=== PATIENT | female | born 1955 | race Caucasian/White ===

== ENCOUNTER 2018-01-10 04:26 | Inpatient (IN) | payer MEDICARE ==
[2018-01-10] VITALS (17 sets, daily range): BP systolic 95–193; BP diastolic 56–121
[~2018-01-10] VITALS: Ht 152.4 cm; Wt 56.7 kg
[2018-01-10 04:59] LABS: EOSINOPHILS % (AUTO) 0.1 % (0.0-8.0); LYMPHOCYTES % (AUTO) 9.5 % (21.0-51.0); MEAN CORPUSCULAR HEMOGLOBIN 30.5 pg (27.0-33.0); MEAN CORPUSCULAR HGB CONC 34.9 g/dL (32.0-36.0); MEAN CORPUSCULAR VOLUME 87.4 fL (79-99); MONOCYTES % (AUTO) 5.4 % (3.0-13.0); PLATELET COUNT (AUTO) 224 K/uL (130-400); RED BLOOD CELL COUNT(AUTO) 5.27 MIL/uL (4.00-5.50); WHITE BLOOD COUNT (AUTO) 13.5 K/uL (4.8-10.8)
[2018-01-10 05:08] LABS: INR 1.08 (0.85-1.15); PARTIAL THROMBOPLASTIN TIME 25.6 SEC (26.3-35.5); PROTHROMBIN TIME 11.3 SEC (9.6-11.6)
[2018-01-10 05:11] LABS: ALBUMIN 3.9 g/dL (3.5-5.0); BILIRUBIN,TOTAL 0.7 mg/dL (0.2-1.0); CREATININE 0.8 mg/dL (0.5-1.5); TOTAL PROTEIN, SERUM 7.1 g/dL (6.0-8.3)
[2018-01-10 05:13] LABS: APPEARANCE,URINE Clear (CLEAR); BILIRUBIN,URINE Small (NEGATIVE); COLOR,URINE Dark Yellow (YELLOW); GLUCOSE, URINE (UA) TRACE mg/dL (NEGATIVE); KETONES,URINE >=80 mg/dL (NEGATIVE); LEUKOCYTE ESTERASE ,URINE Trace (NEGATIVE); NITRATE,URINE Negative (NEGATIVE); OCCULT BLOOD,URINE Negative (NEGATIVE); PH,URINE 6.5 (5.0-8.0); PROTEIN,URINE Negative (NEGATIVE)
[2018-01-10 05:15] LABS: POTASSIUM 2.9 mmol/L (3.5-5.1)
[2018-01-10] MEDS ORDERED: ONDANSETRON HCL MDV 20ML 2 MG/ML VIAL ONE ×2 (05:15→23:59)
[2018-01-10] MEDS ORDERED: FAMOTIDINE/PF 20 MG/2 ML VIAL IV ONE (05:19)
[2018-01-10] MEDS ORDERED: SODIUM CHLORIDE 0.9% 1000ML 1,000 ML IV ONE ×2 (05:19→09:26)
[2018-01-10 05:38] LABS: BACTERIA,URINE None Seen /HPF (None Seen); MUCUS,URINE Rare LPF (None Seen); RBC,URINE None Seen /HPF (0-1); SQUAMOUS EPITHELIAL CELL,UR Few /LPF (0-2); WBC,URINE 0-1 /HPF (0-1); YEAST,URINE BUDDING None Seen /HPF (None Seen)
[2018-01-10] MEDS ORDERED: POTASSIUM BICARB/CIT AC 25 MEQ TABLET.EFF ONE (06:21)
[2018-01-10] MEDS ORDERED: PROMETHAZINE HCL 25 MG/ML 1ML AMPULE IM ONE ×2 (06:30→18:02)
[2018-01-10] MEDS ORDERED: LEVOFLOXACIN 500 MG/D5W 100 ML 100 ML ONE (07:59)
[2018-01-10] MEDS ORDERED: SODIUM CHLORIDE 0.9% 100 ML IV ONE (08:20)
[2018-01-10] MEDS ORDERED: POTASSIUM CHLORIDE 40 MEQ in SODIUM CHLORIDE 0.9% 250 ML IV SCH (09:15)
[2018-01-10 10:17] LABS: HEMATOCRIT 44.5 % (36-48)
[2018-01-10] MEDS ORDERED: NITROGLYCERIN 0.4 MG SL TAB SL PRN (10:45)
[2018-01-10] MEDS ORDERED: POTASSIUM CHLORIDE 10% ELIXIR 20 MEQ/15 ML UDCUP PO PRN (10:45)
[2018-01-10] MEDS ORDERED: LIDOCAINE HCL-MPF 1% 2ML VIAL IVP PRN (10:45)
[2018-01-10] MEDS ORDERED: POTASSIUM CHLORIDE 20MEQ/100ML 100 ML IV PRN (10:45)
[2018-01-10] MEDS ORDERED: ACETAMINOPHEN-CODEINE 300/30MG TAB PO PRN ×2 (10:45)
[2018-01-10] MEDS ORDERED: LACTULOSE 20 GM/30 ML UDCUP PO PRN (10:45)
[2018-01-10] MEDS ORDERED: ONDANSETRON HCL 4 MG/2 ML VIAL IV PRN (10:45)
[2018-01-10] MEDS ORDERED: GUAIFENESIN-DM 200/20 MG 10 ML PO PRN (10:45)
[2018-01-10] MEDS ORDERED: MAG HYDROX/AL HYDROX/SIMETH ES 30 ML SUSP UDCUP PO PRN (10:45)
[2018-01-10] MEDS ORDERED: ACETAMINOPHEN 325 MG TAB PO PRN ×2 (10:45)
[2018-01-10] MEDS ORDERED: METOCLOPRAMIDE 10 MG/2 ML VIAL IVP SCH (11:30)
[2018-01-10] MEDS: MORPHINE SULFATE 4 MG/1ML SYG IV PRN (11:55)
[2018-01-10] MEDS: POTASSIUM CHLORIDE 40 MEQ in SODIUM CHLORIDE 0.9% 1000ML 1,000 ML IV SCH ×2 (12:18→21:10)
[2018-01-10] MEDS ORDERED: PROPOFOL 10 MG/ML 20ML VIAL IV ONE (14:52)
[2018-01-10] MEDS ORDERED: LIDOCAINE HCL 1% 20 ML VIAL ONE (14:54)
[2018-01-10] MEDS ORDERED: GLYCOPYRROLATE 0.2 MG/ML 5 ML VIAL ONE (14:54)
[2018-01-10] MEDS ORDERED: MIDAZOLAM HCL 1 MG/ML 2ML VIAL ONE ×2 (17:51→18:08)
[2018-01-10] MEDS ORDERED: FENTANYL CITRATE PF 50 MCG/1 ML 2ML VIAL ONE ×2 (17:51→18:04)
[2018-01-10] MEDS: MAGNESIUM CITRATE 296 ML SOLUTION PO SCH ×2 (20:15→21:07)
[2018-01-10] MEDS ORDERED: PEG 3350/NA SULF,BICARB,CL/KCL 4000 ML SOLN PO SCH (20:15)
[2018-01-10] MEDS: LACTULOSE 20 GM/30 ML UDCUP PO SCH ×2 (20:15→21:07)
[2018-01-10] MEDS: HYDRALAZINE HCL 20 MG/ML VIAL IV PRN (21:07)
[2018-01-11] VITALS (7 sets, daily range): BP systolic 123–146; BP diastolic 71–88
[2018-01-11] MEDS: MORPHINE SULFATE 2 MG/ML 1ML SYG IV PRN ×3 (03:20→17:49)
[2018-01-11] MEDS ORDERED: FLUO40CA7 PO (03:37)
[2018-01-11] MEDS ORDERED: LORA2TAB2 PO (03:37)
[2018-01-11] MEDS: POTASSIUM CHLORIDE 40 MEQ in SODIUM CHLORIDE 0.9% 1000ML 1,000 ML IV SCH ×3 (04:24→21:38)
[2018-01-11 05:23] LABS: HEMATOCRIT 43.6 % (36-48); MEAN CORPUSCULAR HEMOGLOBIN 30.3 pg (27.0-33.0); MEAN CORPUSCULAR HGB CONC 34.4 g/dL (32.0-36.0); MEAN CORPUSCULAR VOLUME 88.1 fL (79-99); PLATELET COUNT (AUTO) 219 K/uL (130-400); RED BLOOD CELL COUNT(AUTO) 4.95 MIL/uL (4.00-5.50); WHITE BLOOD COUNT (AUTO) 14.1 K/uL (4.8-10.8)
[2018-01-11 05:35] LABS: CREATININE 0.7 mg/dL (0.5-1.5); MAGNESIUM 1.8 mg/dL (1.80-2.40); PHOSPHORUS 2.6 mg/dL (2.5-4.9); POTASSIUM 4.3 mmol/L (3.5-5.1)
[2018-01-11] MEDS ORDERED: ONDANSETRON HCL MDV 20ML 2 MG/ML VIAL ONE (07:41)
[2018-01-11] MEDS ORDERED: LORA1TAB3 PO (07:48)
[2018-01-11] MEDS: PANTOPRAZOLE SODIUM 40 MG TABLET.DR PO SCH (14:44)
[2018-01-11] MEDS: FLUOXETINE HCL 20 MG CAPSULE PO SCH (14:44)
[2018-01-11] MEDS: LEVOFLOXACIN 500 MG/D5W 100 ML 100 ML IV SCH (14:44)
[2018-01-11] MEDS: LORAZEPAM 2 MG/ML 1 ML VIAL IVP PRN (14:46)
[2018-01-11] MEDS: METOPROLOL TARTRATE 1 MG/ML 5ML VIAL IV PRN (15:05)
[2018-01-11] MEDS ORDERED: IOPAMIDOL-370 75 ML VIAL IV ONE (16:03)
[2018-01-11] MEDS: LORAZEPAM 1 MG TABLET PO SCH (21:37)
[2018-01-12] VITALS: BP 145/84
[2018-01-12 04:00] VITALS: BP 162/84
[2018-01-12] MEDS: HYDRALAZINE HCL 20 MG/ML VIAL IV PRN (05:24)
[2018-01-12 05:46] LABS: HEMATOCRIT 44.8 % (36-48); MEAN CORPUSCULAR HEMOGLOBIN 30.4 pg (27.0-33.0); MEAN CORPUSCULAR HGB CONC 34.4 g/dL (32.0-36.0); MEAN CORPUSCULAR VOLUME 88.4 fL (79-99); PLATELET COUNT (AUTO) 203 K/uL (130-400); RED BLOOD CELL COUNT(AUTO) 5.06 MIL/uL (4.00-5.50); RED CELL DISTRIBUTION WIDTH 14.3 % (11.0-15.5)
[2018-01-12 05:52] LABS: CREATININE 0.7 mg/dL (0.5-1.5)
[2018-01-12] MEDS: MORPHINE SULFATE 2 MG/ML 1ML SYG IV PRN ×2 (06:56→19:11)
[2018-01-12 07:54] VITALS: BP 117/69
[2018-01-12] MEDS: LORAZEPAM 2 MG/ML 1 ML VIAL IVP PRN (09:23)
[2018-01-12] MEDS: LEVOFLOXACIN 500 MG/D5W 100 ML 100 ML IV SCH (09:23)
[2018-01-12] MEDS: FLUOXETINE HCL 20 MG CAPSULE PO SCH (09:24)
[2018-01-12] MEDS: PANTOPRAZOLE SODIUM 40 MG TABLET.DR PO SCH (09:24)
[2018-01-12] MEDS: METOPROLOL TARTRATE 1 MG/ML 5ML VIAL IV PRN (09:24)
[2018-01-12 10:48] LABS: AMYLASE 24 U/L (25-115); LIPASE 146 U/L (114-286)
[2018-01-12 11:17] VITALS: BP 96/58
[2018-01-12] MEDS: SODIUM CHLORIDE 0.9% 1000ML 1,000 ML IV SCH ×3 (15:52→22:32)
[2018-01-12 16:38] VITALS: BP 114/70
[2018-01-12 18:43] LABS: ACETONE,BLOOD NEGATIVE (NEGATIVE); CARBON DIOXIDE 18 mmol/L (21-32); CHLORIDE 106 mmol/L (101-111); CREATININE 0.7 mg/dL (0.5-1.5); GLOMERULAR FILTR. RATE CALC 91 mL/min (>60); GLUCOSE,RANDOM 72 mg/dL (70-105); SODIUM SERUM 138 mmol/L (136-145); UREA NITROGEN, BLOOD 10 mg/dL (7-18)
[2018-01-12 20:00] VITALS: BP 130/66
[2018-01-12] MEDS: LORAZEPAM 1 MG TABLET PO SCH (22:31)
[2018-01-13] VITALS (7 sets, daily range): BP systolic 105–151; BP diastolic 64–101
[2018-01-13] MEDS: MORPHINE SULFATE 2 MG/ML 1ML SYG IV PRN ×5 (00:30→21:57)
[2018-01-13] MEDS: SODIUM CHLORIDE 0.9% 1000ML 1,000 ML IV SCH (02:12)
[2018-01-13 05:51] LABS: HEMATOCRIT 43.2 % (36-48); MEAN CORPUSCULAR HEMOGLOBIN 30.6 pg (27.0-33.0); MEAN CORPUSCULAR HGB CONC 34.2 g/dL (32.0-36.0); MEAN CORPUSCULAR VOLUME 89.4 fL (79-99); PLATELET COUNT (AUTO) 179 K/uL (130-400); RED BLOOD CELL COUNT(AUTO) 4.84 MIL/uL (4.00-5.50); RED CELL DISTRIBUTION WIDTH 14.2 % (11.0-15.5); WHITE BLOOD COUNT (AUTO) 10.5 K/uL (4.8-10.8)
[2018-01-13 06:05] LABS: ALBUMIN 2.8 g/dL (3.5-5.0); BILIRUBIN,TOTAL 0.5 mg/dL (0.2-1.0); CREATININE 0.7 mg/dL (0.5-1.5); MAGNESIUM 1.6 mg/dL (1.80-2.40); PHOSPHORUS 3.3 mg/dL (2.5-4.9); POTASSIUM 4.1 mmol/L (3.5-5.1); TOTAL PROTEIN, SERUM 5.9 g/dL (6.0-8.3)
[2018-01-13] MEDS ORDERED: DEXTROSE 50%-WATER 50 ML DISP.SYRIN IV ONE (06:24)
[2018-01-13] MEDS ORDERED: MAGNESIUM 2GM PREMIX 50ML 50 ML IV ONE (06:25)
[2018-01-13] MEDS ORDERED: DEXTROSE 50%-WATER 50 ML DISP.SYRIN IV PRN (06:30)
[2018-01-13] MEDS ORDERED: MAGNESIUM SULFATE 1 GM in SODIUM CHLORIDE 0.9% 50 ML IV SCH (06:30)
[2018-01-13] MEDS ORDERED: GLUCAGON 1MG KIT 1 MG ML IM PRN (06:30)
[2018-01-13] MEDS: PANTOPRAZOLE SODIUM 40 MG TABLET.DR PO SCH (07:59)
[2018-01-13] MEDS: LEVOFLOXACIN 500 MG/D5W 100 ML 100 ML IV SCH (07:59)
[2018-01-13] MEDS: FLUOXETINE HCL 20 MG CAPSULE PO SCH (07:59)
[2018-01-13] MEDS ORDERED: ONDANSETRON HCL MDV 20ML 2 MG/ML VIAL IVP PRN (08:30)
[2018-01-13] MEDS ORDERED: ENOXAPARIN SODIUM 40 MG/0.4 ML SYRINGE SQ SCH (09:00)
[2018-01-13 09:35] LABS: ABG BASE EXCESS -11.4 mmol/L (-2.0-3.0); ABG HCO3 10.4 mmol/L (21.0-28.0); ABG OXYGEN SATURATION 98.4 % (95.0-99.0); ABG PCO2 < 18 mmHg (32-45)
[2018-01-13] MEDS ORDERED: MAGNESIUM 2GM PREMIX 50ML 50 ML IV SCH (10:00)
[2018-01-13] MEDS: DEXTROSE 5 % AND 0.9 % NACL 1,000 ML IV SCH ×2 (12:17→12:28)
[2018-01-13] MEDS: LORAZEPAM 1 MG TABLET PO SCH (21:05)
[2018-01-14] VITALS (7 sets, daily range): BP systolic 126–166; BP diastolic 64–97
[2018-01-14] MEDS: MORPHINE SULFATE 2 MG/ML 1ML SYG IV PRN (03:55)
[2018-01-14 05:56] LABS: CREATININE 0.6 mg/dL (0.5-1.5); POTASSIUM 3.3 mmol/L (3.5-5.1)
[2018-01-14] MEDS: LEVOFLOXACIN 500 MG/D5W 100 ML 100 ML IV SCH (08:10)
[2018-01-14] MEDS: PANTOPRAZOLE SODIUM 40 MG TABLET.DR PO SCH (08:10)
[2018-01-14] MEDS: FLUOXETINE HCL 20 MG CAPSULE PO SCH (08:10)
[2018-01-14] MEDS: MORPHINE SULFATE 4 MG/1ML SYG IV PRN ×3 (08:10→18:38)
[2018-01-14] MEDS: POTASSIUM CHLORIDE 20 MEQ ERTAB PO PRN ×3 (08:11→16:25)
[2018-01-14] MEDS: LORAZEPAM 1 MG TABLET PO SCH (20:12)
[2018-01-15] MEDS: MORPHINE SULFATE 4 MG/1ML SYG IV PRN ×2 (02:20→09:13)
[2018-01-15 03:35] VITALS: BP 129/65
[2018-01-15 05:53] LABS: CREATININE 0.7 mg/dL (0.5-1.5)
[2018-01-15 08:03] VITALS: BP 110/88
[2018-01-15] MEDS: FLUOXETINE HCL 20 MG CAPSULE PO SCH (09:12)
[2018-01-15] MEDS: PANTOPRAZOLE SODIUM 40 MG TABLET.DR PO SCH (09:12)
[2018-01-15] MEDS: LEVOFLOXACIN 500 MG/D5W 100 ML 100 ML IV SCH (09:12)
[2018-01-15] MEDS ORDERED: TRAMADOL HCL 50 MG TABLET PO PRN (09:45)
[2018-01-15] MEDS ORDERED: HYDROCODONE/ACETAMINOPHEN 5/325 MG TAB PO PRN ×2 (10:30)
[2018-01-15 11:51] VITALS: BP 146/85
[2018-01-15] MEDS ORDERED: TRAM50TA2 PO (12:34)
[2018-01-16] MEDS ORDERED: LEVOFLOXACIN 500 MG TABLET PO SCH (09:00)
== END 2018-01-15 14:40 | disposition home or self-care (01) | DRG 682 ==
LOC: EDH 04:26 → EDHIP 07:00 → OBSVTOIN 07:00 → 4CH 10:35
PROVIDERS: ADMIT Family Medicine; ATTEND Family Medicine
PROC: 0DB48ZX Excision of Esophagogastric Junction, Via Natural or Artificial Opening Endoscopic, Diagnostic (ICD-10-PCS; principal; 2018-01-10)
DX: N17.9 Acute kidney failure, unspecified (principal); K85.90 Acute pancreatitis without necrosis or infection, unspecified; E87.2 Acidosis; D62 Acute posthemorrhagic anemia; E86.0 Dehydration; N39.0 Urinary tract infection, site not specified; J98.11 Atelectasis; K29.00 Acute gastritis without bleeding; K21.0 Gastro-esophageal reflux disease with esophagitis; K52.9 Noninfective gastroenteritis and colitis, unspecified; S62.101A Fracture of unspecified carpal bone, right wrist, initial encounter for closed fracture; M79.7 Fibromyalgia; E78.5 Hyperlipidemia, unspecified; F32.9 Major depressive disorder, single episode, unspecified; R74.8 Abnormal levels of other serum enzymes; Z96.641 Presence of right artificial hip joint; X58.XXXA Exposure to other specified factors, initial encounter; E87.6 Hypokalemia; F41.9 Anxiety disorder, unspecified; K72.90 Hepatic failure, unspecified without coma; Z90.49 Acquired absence of other specified parts of digestive tract; Z98.51 Tubal ligation status; Y93.89 Activity, other specified; Y92.89 Other specified places as the place of occurrence of the external cause; Y99.8 Other external cause status; I10 Essential (primary) hypertension; Z79.899 Other long term (current) drug therapy
CPT/HCPCS: 36415; 36600; 71045; 71275; 74176; 76700; 80048; 80053; 81001; 82009; 82150; 82270; 82803; 82948; 83605; 83690; 83735; 84100; 85014; 85018; 85025; 85027; 85378; 85610; 85730; 86677; 86850; 86900; 86901; 88305; 88342; 93005; A4344; A4565; G0481; J0360; J1650; J1956; J2060; J2250; J2270; J2550; J2704; J2765; J3010; J3475; J3480; J3490; J7030; J7042; J7070; Q9967

== ENCOUNTER → 2019-04-14 | Outpatient (CLI) | payer MEDICARE ==
[~2019-04-14] MED LIST: DIATR MEGLU/DIATRIZOATE SODIUM 30 ML BOTTLE ONE; FLUO40CA7 PO; LORA1TAB3 PO; TRAM50TA2 PO
== END | disposition home or self-care (01) ==
LOC: RAH 11:01
PROVIDERS: ATTEND Otolaryngology
DX: Z53.8 Procedure and treatment not carried out for other reasons (principal)
CPT/HCPCS: Q9963